=== PATIENT | male | born 1960 | race Caucasian/White ===

== ENCOUNTER 2020-02-02 16:28 | Emergency (ER) | payer OTHER, SELFPAY ==
--- NOTE | ~2020-02-02 | XR_ITS ---
EXAMINATION: XR chest 2V DATE: 02/02/2020 17:30 INDICATION: Intermittent shortness of breath TECHNIQUE: PA and lateral views of the chest are obtained. COMPARISON: None available FINDINGS: The lungs are free of acute opacities. There is no pleural effusion or pneumothorax. The ca rdiomediastinal silhouette is normal. The visualized bones and soft tissues are unremarkable. IMPRESSION: 1. No acute cardiopulmonary abnormality. Reviewed, dictated and finalized at location A.
[2020-02-02 16:28] VITALS: BP 153/82; PULSE 80; RESP 15; TEMP 36.6; O2SAT 95
[2020-02-02 16:30] VITALS: PULSE 84
--- NOTE | 2020-02-02 16:58 | ECG_ITS ---
Measurements Intervals [place] Rate: 76 P: 76 VT: 173 QRS: 74 QRSD: 93 T: 55 QT: 367 QTc: 415 Interpretive Statements SINUS RHYTHM BASELINE ARTIFACT- II, III, AVR, AVL, AVF NORMAL ECG Electronically Signed On 02-02-2020 20:16:25 CDT by Fabio Dietz D.O.
[2020-02-02] MEDS: SODIUM CHLORIDE 0.9% IV 1,000 ML 999 ML IV CONT (17:15)
[2020-02-02 17:18] VITALS: BP 135/73; PULSE 81; RESP 20; O2SAT 94
[2020-02-02 17:19] LABS: Base Excess ABG 1.3 mmol/L (0-2); HCO3 ABG 24.6 mmol/L (23-29); Oxygen Content ABG 18.5 %vol (16.0-22.0); Oxygen Saturation ABG 93.3 % (95-97); Oxyhemoglobin 87.1 % (94-100); PCO2 ABG 35.1 mmHg (35-45); PO2 ABG 61.3 mmHg (80-90); Total Hemoglobin 15.1 g/dL; pH ABG 7.46 (7.35-7.45)
[2020-02-02 17:20] LABS: Device ROOM AIR; Modified Allen's Test Pass; Site Drawn LEFT RADIAL
[2020-02-02 17:20] LABS: Basophils Absolute Auto 0.06 K/mm3 (0.00-0.10); Basophils Percent Auto 0.8 % (0.0-1.0); Eosinophils Percent Auto 2.7 % (1.0-6.0); Hematocrit 41.9 % (40.0-54.0); Hemoglobin 14.6 g/dL (14.0-18.0); Immature Granulocyte Absolute 0.02 K/mm3 (0.00-0.00); Immature Granulocyte Percent A 0.3 % (0.0-0.0); Lymphocytes Absolute Auto 1.88 K/mm3 (1.10-4.50); Lymphocytes Percent Auto 25.8 % (18.0-42.0); Mean Corpuscular HGB Conc 34.8 g/dL (32.0-36.0); Mean Corpuscular Hemoglobin 30.6 pg (27.0-31.0); Mean Corpuscular Volume 87.8 fL (78.0-102.0); Monocytes Absolute Auto 0.46 K/mm3 (0.10-0.90); Monocytes Percent Auto 6.3 % (2.0-11.0); Neutrophils Absolute Auto 4.7 K/mm3 (1.7-7.2); Neutrophils Percent Auto 64.1 % (50.0-70.0); Platelet Count Result 218 K/mm3 (150-420); Red Blood Count 4.77 M/mm3 (4.70-6.10); Red Cell Distribution Width 13.6 % (11.6-14.4); White Blood Count 7.3 K/mm3 (4.8-10.8)
[2020-02-02 17:36] LABS: D Dimer 0.19 mg/L (0.19-0.50)
[2020-02-02 17:37] LABS: Alanine Aminotransferase 19 U/L (16-63); Albumin Level 3.6 g/dL (3.4-5.0); Alkaline Phosphatase 93 U/L (46-116); Aspartate Amino Transferase 16 U/L (15-37); Bilirubin,Total 0.3 mg/dL (0.00-1.00); Blood Urea Nitrogen 14 mg/dL (7-18); Calcium 8.8 mg/dL (8.5-10.1); Carbon Dioxide 29 mmol/L (21-32); Chloride 107 mmol/L (98-108); Estimated CRCL calculation 63 ml/min; Estimated Glomerular Filt Rate > 60; Glucose 114 mg/dL (70-99); Magnesium 2.1 mg/dL (1.8-2.4); Osmolality Calculated 297 mOsm/kg (285-295); Sodium 143 mmol/L (136-145); Total Protein 6.8 g/dL (6.4-8.2)
[2020-02-02 17:38] LABS: BNP 10.6 pg/mL (0-100); Troponin I < 0.02 ng/mL (0.00-0.056)
[2020-02-02 17:55] VITALS: BP 141/78; PULSE 78; RESP 21; O2SAT 96
--- NOTE | 2020-02-02 18:01 | ED.SOB ---
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 There is no coughing, no fever chills no nausea vomiting no abdominal pain no flank pain no dysuria. Patient does not have a primary care physician and has been having the symptoms off and on and has gotten to the point were he needed to have these symptoms some evaluated. Currently the patient appears comfortable although he does complain of some mild shortness of breath with some chest tightness and anxiety. MD elicited complaint: shortness of breath Onset (ago): month(s) Context: anxiety Timing: intermittent Severity: mild Exacerbating factors: stress, warm air and smoke Relieving factors: nothing Associated symptoms: chest pain Related Data Allergies Allergy/AdvReac Type Severity Reaction Status Date / Time No Known Allergies Allergy Unverified 07/27/15 14:22 Review of Systems Review of Systems: All systems reviewed & are unremarkable except as noted in HPI and below PMFSH Past Medical History Medical History Patient denies medical problems Exam Const: General: no acute distress and alert Orientation/consciousness: patient oriented x3 HENMT: Head: normal to inspection Eyes: Conjunctivae: conjunctivae normal Pupils: Equal, round and reactive pupils present Neck: Neck: normal visual inspection, no lymphadenopathy and no meningeal signs Chest: Chest palpation & inspection: normal inspection of the chest Resp: Effort & Inspection: normal respiratory effort Auscultation: clear to auscultation bilaterally Cardio: Rate: regular rate Rhythm: regular rhythm GI: GI Palp: Yes Soft to palpation Percussion: Yes normal to percussion Back/Spine/Pelvis: Back: no CVA tenderness Skin: General skin exam: normal color Rashes: no rashes Neuro: General: patient oriented x3, moves all extremities, no meningeal signs and no focal motor deficits Extrem: General: normal to inspection and no pedal edema Psych: Mental Status: mental status grossly normal Thought content: Yes Normal thought content present Course Course Emergency Course: Patient received 1 mg IV Ativan and after reassessment he appears more comfortable breathing a lot easier not having any chest discomfort or tightness and no shortness of breath. Vital Signs Vital signs: Vital Signs Temperature 36.6 C 02/02/20 16:28 Pulse Rate 80 02/02/20 16:28 Respiratory Rate 15 02/02/20 16:28 Blood Pressure 153/82 H 02/02/20 16:28 Pulse Oximetry 95 02/02/20 16:28 Temperature 36.6 C 02/02/20 16:28 Pulse Rate 78 02/02/20 17:55 Respiratory Rate 21 H 02/02/20 17:55 Blood Pressure 141/78 H 02/02/20 17:55 Pulse Oximetry 96 02/02/20 17:55 MDM - SOB/Dyspnea Lab Data Result diagrams: 02/02/20 17:11 02/02/20 17:11 Labs: Lab Results 02/02/20 02/02/20 02/02/20 Range/Units 17:11 17:11 17:11 WBC 7.3 (4.8-10.8) K/mm3 RBC 4.77 (4.70-6.10) M/mm3 Hgb 14.6 (14.0-18.0) g/dL Hct 41.9 (40.0-54.0) % MCV 87.8 (78.0-102.0) fL MCH 30.6 (27.0-31.0) pg MCHC 34.8 (32.0-36.0) g/dL RDW 13.6 (11.6-14.4) % Plt Count 218 (150-420) K/mm3 MPV 10.0 (8.7-11.0) fl Immature Gran % (Auto) 0.3 H (0.0-0.0) % Neut % (Auto) 64.1 (50.0-70.0) % Lymph % (Auto) 25.8 (18.0-42.0)
[2020-02-02 18:09] LABS: Amphetamine Screen Urine Negative (Negative); Barbiturate Screen Urine Negative (Negative); Benzodiazepines Screen Urine Negative (Negative); Cannabinoid Screen Urine Negative (Negative); Cocaine Screen Urine Negative (Negative); Methadone Screen Urine Negative (Negative); Opiate Screen Urine Negative (Negative); Phencyclidine Screen Urine Negative (Negative)
[2020-02-02 18:21] LABS: Add Urine Microscopic? NO; Appearance Urine Clear (Clear); Bilirubin Urine Negative (Negative); Blood Urine Negative (Negative); Color Urine Yellow (Yellow); Glucose Urine UA Negative (Negative); Ketones Urine Negative (Negative); Leukocyte Esterase Ur Negative (Negative); Nitrate Urine Negative (Negative); Protein Urine Negative (Negative); Specific Grav Ur 1.015 (1.010-1.020); Urobilinogen Urine Negative mg/dL (0.2-1.0)
== END 2020-02-02 18:11 | disposition home or self-care (01) ==
PROVIDERS: Emergency Provider Emergency Medicine
DX: F41.9 Anxiety disorder, unspecified (principal)
CPT/HCPCS: 36415; 36600; 71046; 80053; 80307; 81003; 82805; 83735; 83880; 84484; 85025; 85380; 93005; 96361; 96374; 99284; J2060; J7030

== ENCOUNTER 2020-02-20 08:23 | Outpatient (CLI) | payer OTHER, SELFPAY | END 2020-02-20 08:24 | disposition home or self-care (01) | LOC: CHSCARD 08:24 | PROVIDERS: PCP Internal Medicine; Visit Provider Internal Medicine | DX: J44.9 Chronic obstructive pulmonary disease, unspecified (principal) | CPT/HCPCS: 94060; 94726; 94729; 95012 ==

== ENCOUNTER 2020-09-03 12:17 | Outpatient (CLI) | payer OTHER, SELFPAY ==
--- NOTE | ~2020-09-03 | XR_ITS ---
XR chest 2V DATE: 09/03/2020 12:40 INDICATION: Right anterior lateral chest pain. COPD. TECHNIQUE: PA and lateral views. COMPARISON: 02/02/2020 PA and lateral chest FINDINGS: Bilateral hyperinflation consistent with history of COPD. No pulmonary infiltrate or consol idation, pleural effusion or pulmonary vascular congestion or pneumothorax is detected. Normal heart size. No hilar or mediastinal enlargement. IMPRESSION: COPD; no active cardiopulmonary disease or significant change since 02/02/2020 Reviewed, dictated and finalized at location A. [employer]
== END 2020-09-03 12:18 | disposition home or self-care (01) ==
PROVIDERS: PCP Internal Medicine; Visit Provider Internal Medicine
DX: J44.9 Chronic obstructive pulmonary disease, unspecified (principal); R07.9 Chest pain, unspecified
CPT/HCPCS: 71046

== ENCOUNTER 2020-11-02 09:49 | Outpatient (CLI) | payer OTHER, SELFPAY ==
--- NOTE | ~2020-11-02 | CT_ITS ---
EXAMINATION: CT lung screening DATE: 11/02/2020 10:17 INDICATION: Personal history of tobacco use hx tobacco dependence TECHNIQUE: Computed tomography (CT) of the chest was performed without intravenous contrast. Addition al 3D reconstructions utilizing coronal maximum intensity projection (MIP) were performed. Automated exposure control and iterative reconstruction technique were employed. The dose-length product was 12 9.68 mGy-cm. COMPARISON: None FINDINGS: Tiny calcified pulmonary nodules, one in the right lower lobe and 2 in the left lower lobe consistent with old granulomatous disease in the bilateral lower lobes. No other suspicious pulmonary nodules, pneumonia, pulmonary edema or pleural effusion. Heart size is normal. Atherosclerotic coronary artery calcifications. No pericardial effusion. Thoracic aorta is normal in caliber. No pathologically enla rged thoracic lymphadenopathy. Visualized upper abdomen is unremarkable. Mild upper thoracic spondylo sis. IMPRESSION: 1. Lung-RADS category 1: Negative. Continue annual screening with noncontrast low-dose chest CT in 12 months. Reviewed, dictated and finalized at location A. IMPRESSION: 1. Lung-RADS category 1: Negative. Continue annual screening with noncontrast l ow-dose chest CT in 12 months.
== END 2020-11-02 09:50 | disposition home or self-care (01) ==
LOC: CHSIMG 09:52
PROVIDERS: PCP Internal Medicine; Visit Provider Internal Medicine
DX: Z12.2 Encounter for screening for malignant neoplasm of respiratory organs (principal); Z87.891 Personal history of nicotine dependence
CPT/HCPCS: 71271

== ENCOUNTER 2024-02-26 13:21 | Outpatient (CLI) | payer MEDICARE, SELFPAY ==
--- NOTE | ~2024-02-26 | XR_ITS ---
XR chest 2V 02/26/2024 13:50 Indication: COPD. Weight loss. Congestion. Procedure: 2 view chest Comparison: 09/03/2020 Findings: The lungs are hyperinflated which is consistent with, but not diagnostic of chronic obstruc tive pulmonary disease. No focal air space disease, pulmonary edema, pleural effusion or suspected pn eumothorax. Heart size normal. Impression: 1: No acute cardiopulmonary disease. Reviewed, dictated and finalized at location B. Impression: 1: No acute cardiopulmonary disease.
[2024-02-26 13:39] LABS: Add Urine Microscopic? NO; Appearance Urine Clear (Clear); Basophils Absolute Auto 0.04 K/mm3 (0.00-0.10); Basophils Percent Auto 0.5 % (0.0-1.0); Bilirubin Urine Negative (Negative); Blood Urine Negative (Negative); Color Urine Yellow (Yellow); Eosinophils Absolute Auto 0.03 K/mm3 (0.02-0.50); Eosinophils Percent Auto 0.4 % (1.0-6.0); Glucose Urine UA Negative (Negative); Hematocrit 39.6 % (40.0-54.0); Hemoglobin 13.2 g/dL (14.0-18.0); Immature Granulocyte Absolute 0.02 K/mm3 (0.00-0.00); Immature Granulocyte Percent A 0.3 % (0.0-0.0); Ketones Urine Negative (Negative); Leukocyte Esterase Ur Negative (Negative); Lymphocytes Absolute Auto 1.66 K/mm3 (1.10-4.50); Lymphocytes Percent Auto 22.5 % (18.0-42.0); Mean Corpuscular HGB Conc 33.3 g/dL (32-36); Mean Corpuscular Hemoglobin 29.3 pg (27.0-31.0); Mean Corpuscular Volume 87.8 fL (78.0-102.0); Mean Platelet Volume 9.2 fl (8.7-11.0); Monocytes Percent Auto 6.8 % (2.0-11.0); Neutrophils Absolute Auto 5.12 K/mm3 (1.70-7.20); Neutrophils Percent Auto 69.5 % (50.0-70.0); Nitrate Urine Negative (Negative); Platelet Count Result 246 K/mm3 (150-420); Protein Urine Negative (Negative); Red Blood Count 4.51 M/mm3 (4.70-6.10); Red Cell Distribution Width 13.5 % (11.6-14.4); Urobilinogen Urine 0.2 mg/dL (0.2-1.0); White Blood Count 7.4 K/mm3 (4.8-10.8); pH Urine 5.5 (5.0-8.0)
[2024-02-26 14:22] LABS: Alanine Aminotransferase 24 U/L (16-63); Alkaline Phosphatase 79 U/L (46-116); Anion Gap 7 mmol/L (4-12); Aspartate Amino Transferase 18 U/L (15-37); Bilirubin,Total 0.3 mg/dL (0.00-1.00); Blood Urea Nitrogen 12 mg/dL (7-18); Calcium 9.4 mg/dL (8.5-10.1); Carbon Dioxide 30 mmol/L (21-32); Chloride 103 mmol/L (98-108); Cholesterol 229 mg/dL (0-200); Estimated Glomerular Filt Rate > 60; Free T4 Free Thyroxine 0.86 ng/dL (0.76-1.46); Glucose 86 mg/dL (70-99); HDL Direct 49 mg/dL (40-60); LDL Cholesterol Calculated 160 mg/dL (<130); Osmolality Calculated 288 mOsm/kg (285-295); Potassium 3.9 mmol/L (3.5-5.1); Prostate Specific Antigen 1.4 ng/mL (< OR = 4.0); Sodium 140 mmol/L (136-145); Thyroid Stimulating Hormone 0.89 uIU/mL (0.36-3.74); Total Protein 6.9 g/dL (6.4-8.2); Triglycerides 98 mg/dL (0-150)
== END 2024-02-26 13:22 | disposition home or self-care (01) ==
LOC: CHSLAB 13:25
PROVIDERS: PCP Internal Medicine; Visit Provider Internal Medicine
DX: J44.9 Chronic obstructive pulmonary disease, unspecified (principal); R63.4 Abnormal weight loss; R09.81 Nasal congestion; R97.20 Elevated prostate specific antigen [PSA]; E78.2 Mixed hyperlipidemia
CPT/HCPCS: 36415; 71046; 80053; 80061; 81003; 84153; 84439; 84443; 84481; 85025

== ENCOUNTER 2024-03-01 10:11 | Outpatient (CLI) | payer OTHER, SELFPAY ==
[2024-03-01 10:24] LABS: Hematocrit 43.9 % (40.0-54.0); Hemoglobin 14.4 g/dL (14.0-18.0); Immature Reticulocyte Fraction 5.7 % (2.0-16.52); Reticulocyte Hemoglobin Conten 34.7 pg (28.0-35.0); Reticulocyte Percent 0.89 % (0.50-1.50); Reticulocytes Absolute 0.04 M/mm3 (0.02-0.10)
[2024-03-01 11:22] LABS: Ferritin 118 ng/mL (26-388); Iron 89 ug/dL (65-175); Percent Iron Saturation 27 % (12-57)
== END 2024-03-01 10:12 | disposition home or self-care (01) ==
LOC: CHSLAB 10:14
PROVIDERS: PCP Internal Medicine; Visit Provider Internal Medicine
DX: D64.9 Anemia, unspecified (principal)
CPT/HCPCS: 36415; 82728; 83540; 83550; 85014; 85018; 85046

== ENCOUNTER 2024-03-03 09:48 | Outpatient (CLI) | payer MEDICARE, SELFPAY ==
--- NOTE | ~2024-03-03 | CT_ITS ---
EXAMINATION:CT lung screening DATE: 03/03/2024 10:30 INDICATION: Personal history of nicotine dependence. Smoker who quit 3 years ago with 30 pack year hi story. TECHNIQUE: Computed tomography (CT) of the chest was performed without intravenous contrast. Automate d exposure control and iterative reconstruction technique were employed. The dose-length product (DLP ) was 73.45 mGy-cm. COMPARISON: Chest CT 11/02/2020 FINDINGS: The lungs demonstrate minimal atelectasis. A calcified right lung nodule is consistent with old granulomatous disease. No pleural effusion. There is a 2.3 cm nodule in right thyroid lobe. The heart size is normal. There are coronary artery calcifications. No pericardial effusion. There is mil d thoracic spondylosis. IMPRESSION: 1. Lung-RADS category 1: Negative. Continue annual screening with noncontrast low-dose chest CT in 12 months. 2. Right thyroid nodule. Consider thyroid ultrasound for risk stratification. Reviewed, dictated and finalized at location A. IMPRESSION: 1. Lung-RADS category 1: Negative. Continue annual screening with noncontrast l ow-dose chest CT in 12 months. 2. Right thyroid nodule. Consider thyroid ultrasound for risk stratification.
== END 2024-03-03 09:49 | disposition home or self-care (01) ==
LOC: CHSIMG 09:49
PROVIDERS: PCP Internal Medicine; Visit Provider Internal Medicine
DX: Z12.2 Encounter for screening for malignant neoplasm of respiratory organs (principal); Z87.891 Personal history of nicotine dependence; E04.1 Nontoxic single thyroid nodule
CPT/HCPCS: 71271

== ENCOUNTER 2024-03-08 12:00 | Outpatient (CLI) | payer MEDICARE, SELFPAY ==
--- NOTE | ~2024-03-08 | US_ITS ---
EXAMINATION: US thyroid DATE: 03/08/2024 12:26 INDICATION: Thyroid nodule. TECHNIQUE: Multiple ultrasound images of the thyroid were obtained. COMPARISON: None. FINDINGS: The right thyroid lobe measures 5.1 x 2.5 x 2.2 cm. The left thyroid lobe measures 4.2 x 1.2 x 1.6 c m. In the right thyroid lobe, there is a 2.4 cm almost entirely cystic nodule with low level echoes (TI-RADS TR1). IMPRESSION: 1. Right thyroid nodule, likely benign. Reviewed, dictated and finalized at location A.
== END 2024-03-08 12:01 | disposition home or self-care (01) ==
PROVIDERS: PCP Internal Medicine; Visit Provider Internal Medicine
DX: E04.1 Nontoxic single thyroid nodule (principal)
CPT/HCPCS: 76536

== ENCOUNTER 2024-08-17 10:01 | Outpatient (CLI) | payer MEDICARE, SELFPAY ==
[2024-08-17 10:40] LABS: Anion Gap 7 mmol/L (4-12); Blood Urea Nitrogen 9 mg/dL (7-18); Calcium 9.1 mg/dL (8.5-10.1); Carbon Dioxide 29 mmol/L (21-32); Chloride 105 mmol/L (98-108); Estimated Glomerular Filt Rate > 60; Glucose 100 mg/dL (70-99); Osmolality Calculated 290 mOsm/kg (285-295); Potassium 4.9 mmol/L (3.5-5.1); Sodium 141 mmol/L (136-145)
== END 2024-08-17 10:02 | disposition home or self-care (01) ==
LOC: CHSLAB 10:03
PROVIDERS: PCP Internal Medicine; Visit Provider Internal Medicine
DX: E87.5 Hyperkalemia (principal)
CPT/HCPCS: 36415; 80048

== ENCOUNTER 2024-09-26 08:22 | Outpatient (CLI) | payer MEDICARE, SELFPAY ==
--- NOTE | 2024-09-26 08:00 | ECG_ITS ---
Test Date: 2024-09-26 08:52:29 Measurements Intervals [place] Rate: 70 P: 73 NV: 197 QRS: 53 QRSD: 101 T: 49 QT: 388 QTc: 421 Interpretive Statements SINUS RHYTHM No previous ECG available for comparison Electronically Signed On 09-27-2024 16:25:35 CDT by Dre Parks M.D.
== END 2024-09-26 08:23 | disposition home or self-care (01) ==
LOC: ANHSURGERY 08:27
PROVIDERS: PCP Internal Medicine; Visit Provider Surgery
DX: K40.90 Unilateral inguinal hernia, without obstruction or gangrene, not specified as recurrent (principal); I10 Essential (primary) hypertension; Z01.818 Encounter for other preprocedural examination
CPT/HCPCS: 36415; 86850; 86900; 86901; 93005

== ENCOUNTER 2024-10-04 02:13 | Day surgery (SDC) | payer MEDICARE, SELFPAY ==
[2024-09-06 08:23] VITALS: BMI 23.3
--- NOTE | 2024-09-06 08:41 | PC.NURSE ---
Addendum entered by Negro Harding RN 09/06/24 15:45: Report to the outpatient waiting room, entrance under the green pavilion located off [address], at 1130 on date 10-04-2024. Planned procedure time 130pm. Original Note: Report to the Outpatient Waiting Room, entrance under the green pavilion located off [address], at time _1130_ on date _[id number]_. Planned Procedure Time: _130pm_.? Time changes happen often and if your time is changed the preop area will call you the afternoon before. - You and your visitor will be asked to self-screen and do not enter if you have any COVID symptoms. Please call surgeon if you need to reschedule. - A mask is optional within the hospital at this time. Patients may have clear liquids (water, carbonated beverages, clear teas, apple juice) until 3 hours prior to surgery with a maximum of 20 ounces. - No food from midnight until time of surgery and no smoking, or chewing tobacco (or any form of nicotine). No chewing gum, candy or mints. Take only the following medications with a SIP of water on the morning of surgery: __Inhalers DO NOT STOP ANY OF YOUR OTHER PRESCRIPTION MEDICATIONS PRIOR TO SURGERY EXCEPT THE FOLLOWING Hold all vitamins and supplements for 3 days per anesthesiologist. Medications to discontinue per physician ___Please ask Dr Bui's office if need to hold Ibuprofen___ Date to take last dose Please no make-up, nail mohawk, hairspray, perfume, deodorant, or body powder the day of surgery.? No jewelry (including any body piercings) or valuables the day of surgery, leave them at home.? Please take a shower or bath the night before, or the morning of, surgery with an antibacterial soap.? Wear comfortable, loose fitting clothing.? - Jewelry must be removed prior to entering the operating room.? Rings and piercings that are not removed may be cut off. - The hospital will not accept responsibility for valuables.? - Please leave all valuables, including medications, at home the day of surgery. If you are going home after surgery, a licensed bookmobile driver must drive you home.? - NO public transportation without another adult if you receive anesthesia. - We recommend that an adult stay with you for 24 hours following discharge. - We also recommend that you do not drive, make important decision, drink alcoholic beverages, or take any drugs that were not prescribed by your health care provider for at least 24 hours after your discharge time. Follow any additional instructions given to you from your surgeon. Telephone instructions given to __David__and asked if any additional questions and then verbalized understanding. Patient advised to call surgeon office or pre surgery nurse liaison [phone] if any additional questions.
[2024-10-04] VITALS (13 sets, daily range): BP systolic 135–183; BP diastolic 69–93; PULSE 67–85; RESP 17–22; TEMP 36.5–36.6; O2SAT 92–99
[2024-10-04] MEDS: ACETAMINOPHEN 500 MG TABLET 1000 MG PO (12:45)
[2024-10-04] MEDS: LACTATED RINGERS 1,000 ML 30 ML IV CONT ×3 (13:10→16:15)
[2024-10-04] MEDS: KETOROLAC 15 MG/ML VIAL (*BKC) IV PUSH (13:15)
[2024-10-04] MEDS: hydrALAZINE HCL 20 MG/ML VIAL 5 MG IV PUSH (13:38)
--- NOTE | 2024-10-04 13:41 | P.PNAN_ITS ---
Anes - Initial Pre Proc Eval Procedure: Operation Date: 10/04/24 13:30 Proposed Procedures p Laparoscopic Left Inguinal Hernia Repair with Mesh, Davinci Assisted - Moise Bui DO Date/Time: 10/04/24 13:41 Surgeon: Moise Bui DO Pre Op Diagnosis: Left Inguinal Hernia Patient Data Age: 64 Gender: M Height: 1.78 m Weight: 74.6 kg Last Vital Signs Temp 36.5 C 10/04/24 12:10 Pulse 69 10/04/24 12:10 Resp 18 10/04/24 12:10 BP 174/93 H 10/04/24 12:10 Pulse Ox 99 10/04/24 12:10 O2 Del Method Room Air 10/04/24 12:10 Allergies Allergy/AdvReac Type Severity Reaction Status Date / Time No Known Allergies Allergy Verified 10/04/24 13:11 Home Medications ?Medication ?Instructions ?Recorded ?Confirmed ?Type albuterol sulfate 90 mcg/actuation 2 puff inhalation QID PRN 02/02/20 10/04/24 Rx aerosol inhaler (ProAir HFA) shortness of breath or wheezing #6.7 grams duloxetine 30 mg capsule,delayed 30 mg PO DAILY 09/01/24 10/04/24 History release fluticasone fur. 100 mcg-umeclid 1 inh inhalation DAILY 09/01/24 10/04/24 History 62.5 mcg-vilant 25 mcg inhalat.powder (Trelegy Ellipta) ibuprofen 200 mg tablet 800 mg PO Q6H PRN pain 09/01/24 09/06/24 History rosuvastatin 5 mg tablet 5 mg PO DAILY 09/01/24 10/04/24 History verapamil 120 mg 24 hr 120 mg PO DAILY 09/01/24 10/04/24 History capsule,extended release Patient hx anesthesia problems: none Family hx anesthesia problems: none Results Review: All pre-operative results and documents have been reviewed as part of the pre- operative evaluation. [facility] Past Medical History Medical History COPD (chronic obstructive pulmonary disease) Hypertension High cholesterol Patient denies medical problems Surgical History Surgical History Hx of prior ablation treatment varicose vein stripping/ablation Dr. Valverde Family History Family History Other Asthma Heart disease Social History Social History Smoking packs per day: 1 Smoking cigarettes per day: 20.0 Years smoked: 45 Smoking pack-years: 45.00 Smoking status: Current every day smoker Tobacco type: cigarettes and e-cigarettes/vaping Smoking end date: 09/06/20 Additional smoking assessment comments: Quit vaping Alcohol intake: former Substance use type: marijuana Other substance usage details: Once in awhile Do You Feel Safe in your Home?: Yes Lack of Transportation: No Lack of Food: Never True Current Housing: I Have Housing Concerned About Future Housing: No Difficulty Paying Gas/Electric Bills: No Difficulty Paying for Meds: No Currently Unemployed: No Education: High School Diploma/GED Difficulty w/ Childcare or Family Care: No Living arrangements: with family Occupation/Education: occupation Additional occupation/education comments: [employer] Spiritual care concerns: No Anes - Eval Final PreProcedure Day of Procedure 10/04/24 13:41 Patient weight: normal Heart: regular rate and rhythm Lungs: clear to auscultation Airway: Mallampati scale class II Neurological: alert and oriented Last oral intake: >/= 8 hours ASA classification: III Emergent: no Anesthetic plan: proceed Anesthesia type and monitoring: general ETT and standard monitoring Results Review: All pre-operative results and documents have been reviewed as part of the pre- operative evaluation. Informed Consent: The patient's anesthetic plan and its attendant risks and benefits were discussed with the patient/family/POA. Questions were solicited and answers provided to the satisfaction of the patient/family/POA.
--- NOTE | 2024-10-04 14:03 | WPDHPUPDATE1 ---
History and Physical Update Update Date/Time: 10/04/24 14:03 History and Physical has been reviewed, including an updated exam of the patient. There are NO changes in the patient's condition. Risks, benefits, and alternatives have been discussed and questions answered. Patient agrees to proceed with procedure.
--- NOTE | 2024-10-04 14:03 | PM.IMHP ---
H&P: HPI History of Present Illness Date/Time: 10/04/24 14:03 Chief Complaint: Left inguinal hernia Narrative: This is a 64-year-old man who presents for left inguinal hernia repair. He reports no changes since last seen in the office. Review of Systems Review of Systems: All systems reviewed & are unremarkable except as noted in HPI and below Constitutional: Constitutional: Denies chills, Denies fever(s), Denies headache(s) and Denies weight loss Eyes: Eyes: Denies change in vision ENT: Denies dizziness, Denies headache(s), Denies neck mass and Denies throat swelling Cardiovascular: Cardiovascular: Denies chest pain, Denies lightheadedness and Denies dyspnea Respiratory: Respiratory: Denies cough, Denies dyspnea and Denies wheezing Gastrointestinal: Gastrointestinal: Denies abdominal pain, Denies change in bowel habits, Denies nausea and Denies vomiting Genitourinary: Genitourinary: Denies hematuria and Denies dysuria Musculoskeletal: Musculoskeletal: Reports as per HPI Integumentary/Breasts: Skin/Breast: Reports as per HPI Neurologic: Denies dizziness and Denies headache(s) Allergic/Immunologic: Allergic/Immunologic: Denies throat swelling and Denies wheezing PMFSH Past Medical History Medical History COPD (chronic obstructive pulmonary disease) Hypertension High cholesterol Patient denies medical problems Surgical History Surgical History Hx of prior ablation treatment varicose vein stripping/ablation Dr. Valverde Family History Family History Other Asthma Heart disease Social History Social History Smoking packs per day: 1 Smoking cigarettes per day: 20.0 Years smoked: 45 Smoking pack-years: 45.00 Smoking status: Current every day smoker Tobacco type: cigarettes and e-cigarettes/vaping Smoking end date: 09/06/20 Additional smoking assessment comments: Quit vaping Alcohol intake: former Substance use type: marijuana Other substance usage details: Once in awhile Do You Feel Safe in your Home?: Yes Lack of Transportation: No Lack of Food: Never True Current Housing: I Have Housing Concerned About Future Housing: No Difficulty Paying Gas/Electric Bills: No Difficulty Paying for Meds: No Currently Unemployed: No Education: High School Diploma/GED Difficulty w/ Childcare or Family Care: No Living arrangements: with family Occupation/Education: occupation Additional occupation/education comments: [employer] Spiritual care concerns: No Meds Home Medications and Allergies Home Medications ?Medication ?Instructions ?Recorded ?Confirmed ?Type albuterol sulfate 90 mcg/actuation 2 puff inhalation QID PRN 02/02/20 10/04/24 Rx aerosol inhaler (ProAir HFA) shortness of breath or wheezing #6.7 grams duloxetine 30 mg capsule,delayed 30 mg PO DAILY 09/01/24 10/04/24 History release fluticasone fur. 100 mcg-umeclid 1 inh inhalation DAILY 09/01/24 10/04/24 History 62.5 mcg-vilant 25 mcg inhalat.powder (Trelegy Ellipta) ibuprofen 200 mg tablet 800 mg PO Q6H PRN pain 09/01/24 09/06/24 History rosuvastatin 5 mg tablet 5 mg PO DAILY 09/01/24 10/04/24 History verapamil 120 mg 24 hr 120 mg PO DAILY 09/01/24 10/04/24 History capsule,extended release Allergies Allergy/AdvReac Type Severity Reaction Status Date / Time No Known Allergies Allergy Verified 10/04/24 13:11 Vital Signs Vital Signs - 24 hr 10/04/24 12:10 Temperature 97.7 F Pulse Rate 69 Respiratory Rate 18 Blood Pressure 174/93 H Pulse Oximetry 99 Oxygen Delivery Room Air Exam Const: General: no acute distress and alert Orientation/consciousness: patient oriented x3 HENMT: Head: normocephalic and atraumatic Ears: hearing grossly normal bilaterally Face/Nose/Sinus: Normal nares present Mouth: Yes Normal oral and palatal mucosa present Eyes: Periorbital: periorbital findings normal Sclera: sclerae normal EOM: EOMs intact bilaterally Neck: Neck: normal visual inspection, no lymphadenopathy and trachea midline Chest: Chest palpation & inspection: normal inspection of the chest Resp: Effort & Inspection: normal respiratory effort Auscultation: clear to auscultation bilaterally Cardio: Jugular venous distension: no JVD Rate: regular rate Rhythm: regular rhythm Heart sounds: S1 normal heart sound present and S2 normal heart sound present Peripheral pulses: Peripheral pulses 2+ throughout GI: Inspection: normal to inspection GI Palp: Yes Soft to palpation, No Tenderness to palpation present (GI), No Guarding due to palpation present (GI) and No Rebound tenderness present Percussion: Yes normal to percussion Auscultation: normal bowel sounds : General: Yes no CVA tenderness Scrotum: inguinal hernia on the left Back/Spine/Pelvis: Back: no CVA tenderness Neuro: General: patient oriented x3, no focal motor deficits and CN's II-XI intact bilaterally Cognition (Neuro): normal cognition Speech: normal speech Motor exam (neuro): 5/5 motor strength present throughout Extrem: General: capillary refill normal and no clubbing, cyanosis or edema Assessment and Plan Assessment and plan (1) Left inguinal hernia: Code(s): K40.90 - Unilateral inguinal hernia, without obstruction or gangrene, not specified as recurrent Status: Acute Assessment and Plan: I have recommended laparoscopic left inguinal hernia repair with mesh, da Hortencia assisted. I have discussed the procedure, risks, benefits, and alternatives with the patient. All questions answered. No changes since last seen in office.
[2024-10-04] MEDS: ceFAZolin 2 GM/D5W 50 ML 2 GM/50 ML BAG IVPB (14:17)
[2024-10-04] MEDS: BUPIVACAINE/EPINEPHRINE 0.5% 50 ML VIAL 30 ML INFILTRATE (14:41)
--- NOTE | 2024-10-04 15:41 | W.PM.PROC2 ---
Procedure Note - Detailed Date of Procedure 10/04/24 Pre-op Diagnosis Left Inguinal Hernia Post-op Diagnosis Same (Indirect LIH) Procedure Performed Laparoscopic left inguinal hernia repair with mesh, da Hortencia assisted Surgeon Moise Bui, Anesthesia General and Local (0.5% bupivacaine with epinephrine) Indications This is a 64-year-old man who presented with a left groin bulge that he noticed about 3 months ago. He was experiencing a cough and 1st noticed some pain and a bulge while coughing. Symptoms have progressed and he is fairly uncomfortable every time he coughs. He was found to have a reducible left inguinal hernia physical exam. Discussions were made with the patient about treatment options and decision was made to proceed with robotic assisted laparoscopic left inguinal hernia repair with mesh. Findings Robotic assisted laparoscopic left inguinal hernia repair with mesh was performed. The patient was found to have an indirect left inguinal hernia that was medium sized. There was no evidence of a right inguinal hernia. A robotic transabdominal preperitoneal approach was utilized for repair. The hernia sac was slightly indurated and closely tethered to the cord contents. Once a wide enough preperitoneal pocket was created and that sac was reduced, I then placed a left 3DMax mid mesh overlying the entire left myopectineal orifice. No specimens were obtained for pathology. Description of Procedure Procedure as well as risks, benefits, and alternatives were discussed with the patient. Written consent was obtained and placed in chart prior to procedure. Patient was brought back to surgical suite. He was placed supine on operating table. Time-out was done to confirm patient and procedure. He was then intubated by Anesthesia Department. His abdomen was prepped and draped in sterile fashion using chlorhexidine prep. 0.5% bupivacaine with epinephrine was infiltrated at each location for incision. An 8 mm incision was made in the left lateral abdomen, and a 5 mm Optiview trocar was advanced through the abdominal layers under direct visualization. Once inside the abdominal cavity, carbon dioxide insufflation was used to create a pneumoperitoneum. A camera was inserted and the abdominal cavity was inspected. The patient was placed in slight Trendelenburg position. An 8 millimeter incision was made on the right lateral abdomen and an 8 millimeter trocar was inserted under direct visualization. Another 8 millimeter incision was made just superior to the umbilicus and an 8 millimeter trocar was inserted under direct visualization. The 5 mm port was then removed and this was replaced with another 8 mm robotic port. The robotic arms were brought up to the patient's bedside and secured to the ports. The camera and instruments were inserted. I then moved over to the robotic console and took control of the camera and instruments. After careful inspection of the abdominal cavity, I began scoring the peritoneum along the left lower quadrant using scissors with electrocautery. The preperitoneal plane was entered and this was carefully dissected caudally along the inferior epigastric vessels. Careful dissection with scissors with electrocautery and blunt dissection was used to continue this dissection. I dissected far enough laterally to allow for mesh placement, and also dissected medially to identify the pubic arch and Emiliano's ligament. The hernia sac was identified and carefully dissected posteriorly. The cord contents were also identified and the peritoneum was carefully dissected far enough posteriorly to allow for mesh placement. Once an adequate pocket was created, I then placed the mesh within the preperitoneal pocket and carefully unfolded it. The mesh was centered on the hernia defect with adequate overlap circumferentially. The inferior edge of the mesh was inspected to ensure that it was far enough away from the peritoneal edge. The mesh appeared in proper position overlying the entire myopectineal orifice. The mesh was secured using 3-0 Vicryl simple interrupted sutures in Emiliano's ligament, the superior medial edge, and superior lateral edge of the mesh. The peritoneum was then closed over the mesh using a 3-0 V-lock running absorbable suture. The robotic instruments were removed. The robotic arms were disengaged from the ports and moved away from the bedside. The patient was flattened out in bed, the ports were removed under direct visualization, and the pneumoperitoneum was released. The skin of the incisions was approximated using 4-0 Monocryl subcuticular suture, and Exofin glue was applied on top. The patient was awakened from anesthesia, extubated, and transferred to recovery. Implants Large left 3DMax mid mesh Estimated Blood Loss 20 Complications No immediate complications Condition Stable Disposition Same day [facility] Billing Surgery - Charge Forward: Surgery Billing
[2024-10-04] MEDS: ONDANSETRON INJ 4 MG/2 ML VIAL IV PUSH (16:00)
[2024-10-04] MEDS: diphenhydrAMINE HCl INJ 50 MG/ML VIAL 25 MG IV PUSH (16:25)
[2024-10-04] MEDS: SCOPOLAMINE 1 MG PATCH 1 PATCH TRANSDERM (16:34)
[2024-10-04] MEDS: PROMETHAZINE HCL 25 MG/ML AMPUL 12.5 MG IV PUSH (17:12)
[2024-10-04] MEDS: HALOPERIDOL LACTATE 5 MG/ML VIAL 1 MG IV PUSH (18:10)
--- NOTE | 2024-10-04 18:19 | SUR.PHASEI ---
Patient began vomiting at 1550 and had intermittent vomiting episodes. Patient received several types of antiemetics (See MAR). Spoke with MD Alejandre and it is okay to D/C home.
== END 2024-10-04 18:31 | disposition home or self-care (01) ==
PROVIDERS: PCP Internal Medicine; Visit Provider Surgery
PROC: 8E0Y4CZ Robotic Assisted Procedure of Lower Extremity, Percutaneous Endoscopic Approach (ICD-10-PCS; CPT 49650; principal; 2024-10-04 13:30)
DX: K40.90 Unilateral inguinal hernia, without obstruction or gangrene, not specified as recurrent (principal); I10 Essential (primary) hypertension; E78.00 Pure hypercholesterolemia, unspecified; J44.9 Chronic obstructive pulmonary disease, unspecified; F17.210 Nicotine dependence, cigarettes, uncomplicated; F17.290 Nicotine dependence, other tobacco product, uncomplicated; F12.90 Cannabis use, unspecified, uncomplicated; Z79.51 Long term (current) use of inhaled steroids; Z79.1 Long term (current) use of non-steroidal anti-inflammatories (NSAID); Z98.890 Other specified postprocedural states; Z82.49 Family history of ischemic heart disease and other diseases of the circulatory system
CPT/HCPCS: 49650; S2900; A9270; C1781; J0360; J0690; J1100; J1200; J1630; J1885; J2250; J2371; J2405; J2550; J2704; J3010; J7120

== ENCOUNTER 2025-01-14 19:50 | Emergency (ER) | payer MEDICARE, SELFPAY ==
[2025-01-14] VITALS (24 sets, daily range): BP systolic 125–185; BP diastolic 78–128; PULSE 75–108; RESP 14–24; TEMP 36.7; O2SAT 94–97
--- NOTE | 2025-01-14 20:27 | ED_ITS ---
HPI - Psych General Chief Complaint: Psychiatric Symptoms Stated Complaint: Mental status check Time Seen by Provider: 01/14/25 20:02 Source: patient and police Mode of arrival: ambulatory Limitations: no limitations History of Present Illness HPI Narrative: 64-year-old male with history of smoking, anxiety, COPD, hypertension, dyslipidemia was brought in by police for -- aggressive behavior at home towards his . He stated that he wanted to kill her. He was thought to have a firearm. he punched a screen door. -- The police arrived and threatened to taze him following which he surendered. -- EN route to the hospital the patient has flight of ideas. He was telling them stories which would abruptly end. -- the patient is calm and well composed. Patient would tell a story with pressured speech and subsequently start crying. On arrival he denied having suicidal or homicidal ideation. MD complaint: other ( Aggressive behavior with homicidal ideation) Onset (ago): hour(s) ( 3 hours) Duration: resolved prior to arrival Relieving factors: none Exacerbating factors: none Associated psychiatric symptoms: homicidal ideation and racing thoughts Associated symptoms: denies other symptoms and other ( chronic cough shortness of breath.) Treatments prior to arrival: none Related Data Home Medications ?Medication ?Instructions ?Recorded ?Confirmed ?Last Taken ?Type duloxetine 30 mg capsule,delayed 30 mg PO DAILY 09/01/24 10/25/24 10/03/24 History release ibuprofen 200 mg tablet 800 mg PO Q6H PRN pain 09/01/24 10/25/24 Unknown History verapamil 120 mg 24 hr 120 mg PO DAILY 09/01/24 10/25/24 10/04/24 History capsule,extended release Allergies Allergy/AdvReac Type Severity Reaction Status Date / Time No Known Allergies Allergy Verified 01/14/25 20:54 Review of Systems 2 Review of Systems: All systems reviewed & are unremarkable except as noted in HPI and below Constitutional: Constitutional: Reports as per HPI and Reports no additional constitutional complaints Eyes: Eyes: Reports as per HPI and Reports no additional eye complaints ENT: Reports system reviewed and no additional complaints, except as documented and Reports as per HPI Cardiovascular: Cardiovascular: Reports as per HPI and Reports no additional cardiovascular complaints Respiratory: Respiratory: Reports as per HPI and Reports no additional respiratory complaints Gastrointestinal: Gastrointestinal: Reports as per HPI and Reports no additional gastrointestinal complaints Genitourinary: Genitourinary: Reports no additional male genitourinary complaints and Reports as per HPI Musculoskeletal: Musculoskeletal: Reports no additional musculoskeletal complaints and Reports as per HPI Integumentary/Breasts: Skin/Breast: Reports system reviewed and no additional complaints, except as docu and Reports as per HPI Neurologic: Reports system reviewed and no additional complaints, except as documented and Reports as per HPI Psychiatric: Psychiatric: Reports homicidal ideation Comments: Flight of ideas. Pressured speech. Endocrine: Endocrine: Reports no additional endocrine complaints and Reports as per HPI Hematologic/Lymphatic: Hematologic/Lymphatic: Reports no additional hematologic/lymphatic complaints and Reports as per HPI Allergic/Immunologic: Allergic/Immunologic: Reports no additional allergic/immunologic complaints and Reports as per HPI [facility] Past Medical History Medical History COPD (chronic obstructive pulmonary disease) Hypertension High cholesterol Patient denies medical problems Surgical History Surgical History H/O inguinal hernia repair 10/04/24 Laparoscopic left inguinal hernia repair with mesh, da Hortencia assisted Dr. Summers Hx of prior ablation treatment varicose vein stripping/ablation Dr. Valverde Family History Family History Other Asthma Heart disease Social History Social History Smoking packs per day: 1 Smoking cigarettes per day: 20.0 Years smoked: 45 Smoking pack-years: 45.00 Smoking status: Current every day smoker Tobacco type: cigarettes and e-cigarettes/vaping Smoking end date: 09/06/20 Additional smoking assessment comments: Quit vaping Alcohol intake: former Substance use type: marijuana Other substance usage details: Once in awhile Do You Feel Safe in your Home?: Yes Lack of Transportation: No Lack of Food: Never True Current Housing: I Have Housing Concerned About Future Housing: No Difficulty Paying Gas/Electric Bills: No Difficulty Paying for Meds: No Currently Unemployed: No Education: High School Diploma/GED Difficulty w/ Childcare or Family Care: No Living arrangements: with family Occupation/Education: occupation 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 Oxygen saturation of 95% on room air. Const: General: no acute distress Orientation/consciousness: patient oriented x3 HENMT: Head: normal to inspection Ears: external ears normal F abbie/Nose/Sinus: Normal external nose present Face and sinus: normal facial exam Mouth: Yes Normal oral and palatal mucosa present Throat: posterior oropharynx normal Eyes: Conjunctivae: conjunctivae normal Pupils: Equal, round and reactive pupils present EOM: EOMs intact bilaterally Direct Ophthalmoscopy: no photophobia Neck: Neck: normal visual inspection, no lymphadenopathy and no meningeal signs Chest: Chest palpation & inspection: normal inspection of the chest Resp: Effort & Inspection: normal respiratory effort Auscultation: rhonchi and diminished lung sounds Cardio: Rate: regular rate Rhythm: regular rhythm GI: GI Palp: Yes Soft to palpation Auscultation: normal bowel sounds O ther: Tenderness/rigidity/rebound : General: Yes no CVA tenderness Back/Spine/Pelvis: Back: no CVA tenderness Skin: General skin exam: normal color Rashes: no rashes Wounds: no wounds Neuro: General: patient oriented x3, moves all extremities, no meningeal signs, no focal motor deficits and CN's II-XI intact bilaterally Extrem: General: normal to inspection and no clubbing, cyanosis or edema Psych: Mental Status: mental status grossly normal Attitude: cooperative Other: pressured speech. Flight of ideas. Intermittent periods crying Course Course Emergency Course: bipolar 1 with current manic episode aggressive behavior patient is medically cleared for psychiatric evaluation and treatment. patient evaluated by psych counselor and thought to have anxiety/depression Vital Signs Vital signs: Vital Signs Temperature 36.7 C 01/14/25 19:52 Pulse Rate 108 H 01/14/25 19:52 Respiratory Rate 18 01/14/25 19:52 Blood Pressure 174/107 H 01/14/25 19:52 Pulse Oximetry 95 01/14/25 19:52 Oxygen Delivery Room Air 01/14/25 19:52 Temperature 36.7 C 01/14/25 19:52 Pulse Rate 80 01/14/25 23:46 Respiratory Rate 20 01/14/25 23:01 Blood Pressure 135/83 01/15/25 00:01 Pulse Oximetry 95 01/14/25 23:01 Oxygen Delivery Room Air 01/14/25 19:52 MDM - Psych MDM Narrative Medical decision making narrative: aggressive behavior anxiety/depression Differential Diagnosis Differential diagnosis: Likely bipolar disorder Medical Records Attestation: I reviewed the patient's medical records. Lab Data Attestation: I reviewed the patient's lab results. 01/14/25 21:12 01/14/25 21:12 Labs: Lab Results 01/14/25 01/14/25 Range/Units 21:12 21:13 WBC 8.7 (4.8-10.8) K/mm3 RBC 4.77 (4.70-6.10) M/mm3 Hgb 13.8 L (14.0-18.0) g/dL Hct 40.7 (40.0-54.0) % MCV 85.3 (78.0-102.0) fL MCH 28.9 (27.0-31.0) pg MCHC 33.9 (32-36) g/dL RDW 13.8 (11.6-14.4) % Plt Count 317 (150-420) K/mm3 MPV 9.2 (8.7-11.0) fl Immature Gran % (Auto) 0.2 H (0.0-0.0) % Neut % (Auto) 79.1 H (50.0-70.0) % Lymph % (Auto) 11.7 L (18.0-42.0) % [place] % (Auto) 7.5 (2.0-11.0) % Eos % (Auto) 0.7 L (1.0-6.0) % Baso % (Auto) 0.8 (0.0-1.0) % Lymph # (Auto) 1.02 L (1.10-4.50) K/mm3 [place] # (Auto) 0.65 (0.10-0.90) K/mm3 Eos # (Auto) 0.06 (0.02-0.50) K/mm3 Baso # (Auto) 0.07 (0.00-0.10) K/mm3 Abs Immat Gran (auto) 0.02 H (0.00-0.00) K/mm3 Absolute Neuts (auto) 6.88 (1.70-7.20) K/mm3 Absolute Nucleated RBC 0.00 (0.00-0.00) K/mm3 Nucleated RBC % 0.0 (0-0.0) % Sodium 138 (137-145) mmol/L Potassium 4.3 (3.4-5.0) mmol/L Chloride 108 H (98-107) mmol/L Carbon Dioxide 22 (22-30) mmol/L Anion Gap 8 (4-12) mmol/L BUN 15 (9-20) mg/dL Creatinine 0.92 (0.7-1.3) mg/dL Estim Creat Clear Calc 75 ml/min Estimated GFR > 60 (59 - ) Glucose 95 (65-110) mg/dL Calculated Osmolality 286 (285-295) mOsm/kg Lactic Acid 1.1 (0.4-2.0) mmol/L Calcium 9.5 (8.4-10.2) mg/dL Magnesium 1.9 (1.6-2.3) mg/dL Total Bilirubin 0.6 (0.2-1.3) mg/dL AST 54 (17-59) U/L ALT 32 (6-50) U/L Alkaline Phosphatase 95 (38-126) U/L Total Creatine Kinase 633 H (55-170) U/L Troponin I < 0.012 (0.000-0.034) ng/mL Total Protein 7.4 (6.3-8.2) g/dL Albumin 4.6 (3.5-5.1) g/dL Lipase 89 (23-300) U/L TSH 3.380 (0.465-4.680) uIU/mL Urine Color Yellow (Yellow) Urine Appearance Clear (Clear) Urine pH 6.5 (5.0-8.0) Ur Specific [place] 1.010 (1.010-1.020) Urine Protein Negative (Negative) Urine Glucose (UA) Negative (Negative) Urine Ketones 1+ H (Negative) Ur Blood (Man) Negative (Negative) Urine Nitrate Negative (Negative) Urine Bilirubin Negative (Negative) Urine Urobilinogen 1.0 (0.2-1.0) mg/dL Leukocyte Esterase Rfl Negative (Negative) JADE/UL Urine Opiates Screen Negative (Negative) Urine Methadone Screen Negative (Negative) Acetaminophen < 10 L (10-30) ug/mL Ur Barbiturates Screen Negative (Negative) Ur Phencyclidine Scrn Negative (Negative) Ur Amphetamine Screen Negative (Negative) U Benzodiazepines Scrn Negative (Negative) Urine Cocaine Screen Negative (Negative) U Cannabinoids Screen Positive A (Negative) Ethyl Alcohol < 10 (<10) mg/dL ECG Data EKG #1: ECG completion date: 01/14/25 ECG completion time: 21:38 Interpretation: normal sinus rhythm. Normal axis. No ST elevation. Discharge Plan Discharge Clinical Impression: Anxiety and depression Patient Disposition: Home Condition: Stable Instructions: Antibiotic Form, Depression (ED), Generalized Anxiety Disorder (ED) Patient Language: Wolof Prescriptions: No Action albuterol sulfate [ProAir HFA] 90 mcg/actuation HFA aerosol inhaler 2 puff INHALATION QID PRN (Reason: shortness of breath or wheezing) Qty: 6.7 0RF ibuprofen 200 mg tablet 800 mg PO Q6H PRN (Reason: pain) duloxetine 30 mg capsule,delayed release(DR/EC) 30 mg PO DAILY Patient Comments: Says takes at HS verapamil 120 mg capsule,ext rel. pellets 24 hr 120 mg PO DAILY Patient Comments: takes at hs Follow-up/Referrals: Forrest Be MD [Primary Care Provider] - Time of Disposition: 00:50
--- NOTE | 2025-01-14 20:36 | ECG_ITS ---
Test Date: 2025-01-14 21:38:57 Measurements Intervals [place] Rate: 81 P: 81 VT: 178 QRS: 60 QRSD: 95 T: 54 QT: 358 QTc: 417 Interpretive Statements SINUS RHYTHM WITH SINUS ARRHYTHMIA POSSIBLE RIGHT ATRIAL ENLARGEMENT [0.25mV P-WAVE] POSSIBLE LEFT ATRIAL ENLARGEMENT [-0.1mV P-WAVE IN V1/V2] Compared to ECG 09/26/2024 08:52:29 No significant changes Electronically Signed On 01-16-2025 22:34:53 CDT by Liya Bhatt M.D.
[2025-01-14] MEDS: OLANZapine 10 MG INJ VIAL IM (20:42)
[2025-01-14 21:19] LABS: Hematocrit 40.7 % (40.0-54.0); Hemoglobin 13.8 g/dL (14.0-18.0); Immature Granulocyte Percent A 0.2 % (0.0-0.0); Lymphocytes Absolute Auto 1.02 K/mm3 (1.10-4.50); Mean Corpuscular HGB Conc 33.9 g/dL (32-36); Mean Corpuscular Hemoglobin 28.9 pg (27.0-31.0); Mean Corpuscular Volume 85.3 fL (78.0-102.0); Nucleated Red Blood Cells Absolute Auto 0.00 K/mm3 (0.00-0.00); Nucleated Red Blood Cells Perc 0.0 % (0-0.0); Platelet Count Result 317 K/mm3 (150-420); Red Blood Count 4.77 M/mm3 (4.70-6.10); White Blood Count 8.7 K/mm3 (4.8-10.8)
--- NOTE | 2025-01-14 21:30 | PC.NURSE ---
spoke with daughter and extensively about patient and plan of care. Both verbalized understanding of plan of care, did voice that they did not feel safe with patient going back home and felt that he needs further hospitalization. Family educated on placement process, both verbalized understanding and want to be called with plan of care once evaluation is done.
[2025-01-14 21:41] LABS: Acetaminophen < 10 ug/mL (10-30)
[2025-01-14 22:33] LABS: Anion Gap 8 mmol/L (4-12); Carbon Dioxide 22 mmol/L (22-30); Chloride 108 mmol/L (98-107); Potassium 4.3 mmol/L (3.4-5.0); Sodium 138 mmol/L (137-145)
[2025-01-14 22:34] LABS: Alanine Aminotransferase 32 U/L (6-50); Aspartate Amino Transferase 54 U/L (17-59); Bilirubin,Total 0.6 mg/dL (0.2-1.3); Blood Urea Nitrogen 15 mg/dL (9-20); Calcium 9.5 mg/dL (8.4-10.2); Creatine Kinase 633 U/L (55-170); Estimated CRCL calculation 75 ml/min; Estimated Glomerular Filt Rate > 60; Glucose 95 mg/dL (65-110); Magnesium 1.9 mg/dL (1.6-2.3); Osmolality Calculated 286 mOsm/kg (285-295)
[2025-01-14 22:35] LABS: Albumin Level 4.6 g/dL (3.5-5.1); Alkaline Phosphatase 95 U/L (38-126); Lipase 89 U/L (23-300); Thyroid Stimulating Hormone 3.380 uIU/mL (0.465-4.680); Total Protein 7.4 g/dL (6.3-8.2); Troponin I < 0.012 ng/mL (0.000-0.034)
[2025-01-14 22:43] LABS: Cannabinoid Screen Urine Positive (Negative)
[2025-01-14 22:47] LABS: Add Urine Microscopic? NO; Appearance Urine Clear (Clear); Glucose Urine UA Negative (Negative); Leukocyte Esterase Ur Negative LEU/UL (Negative); Nitrate Urine Negative (Negative); Specific Grav Ur 1.010 (1.010-1.020)
[2025-01-15 00:01] VITALS: BP 135/83
--- NOTE | 2025-01-15 01:21 | PC.NURSE ---
Spoke with patients about patient being sent home with a safety plan. asked how that works, she was educated on the process again extensively, stated that she would come get him since he was being DC to home with safety plan and 24 hour follow up with psychiatry.
[2025-01-15 01:55] VITALS: BP 141/89; PULSE 87; RESP 18; O2SAT 99
== END 2025-01-15 01:55 | disposition home or self-care (01) ==
PROVIDERS: Emergency Provider Internal Medicine Critical Care Medicine; PCP Internal Medicine
DX: F41.9 Anxiety disorder, unspecified (principal); F32.A Depression, unspecified; J44.9 Chronic obstructive pulmonary disease, unspecified; I10 Essential (primary) hypertension; E78.5 Hyperlipidemia, unspecified; F17.210 Nicotine dependence, cigarettes, uncomplicated
CPT/HCPCS: 36415; 80053; 80143; 80307; 81003; 82077; 82550; 83605; 83690; 83735; 84443; 84484; 85025; 93005; 96372; 99284; J2359